=== PATIENT | male | born 1960 | race Caucasian/White ===

== ENCOUNTER 2022-03-02 18:14 | Emergency (ER) | payer OTHER | END 2022-03-02 21:41 | disposition left against medical advice (07) | LOC: MADERS 18:14 | DX: Z53.21 Procedure and treatment not carried out due to patient leaving prior to being seen by health care provider (principal) ==

== ENCOUNTER 2023-02-23 16:52 | Emergency (ER) | payer OTHER ==
[2023-02-23] MEDS ORDERED: Labetalol HCl 100 MG/20 ML VIAL ONE (17:36)
[2023-02-23 18:14] LABS: #Basophils 0.1 thou/uL (0.0-0.2); #Eosinphils 0.1 thou/uL (0.0-0.7); #Lymphocytes 1.5 thou/uL (1.20-3.40); #Monocytes 0.5 thou/uL (0.11-0.59); #Neutrophils 7.9 thou/uL (1.40-6.50); %Eosinophils 1.1 % (0.0-10.0); %Lymphocytes 14.7 % (21.0-51.0); %Neutrophils 78.2 % (42.0-75.0); Hematocrit 56.8 % (42.0-52.0); Hemoglobin 18.7 g/dL (14.0-18.0); Mean Corpuscular HGB CONC 32.9 g/dL (32.0-36.0); Mean Corpuscular Hemoglobin 31.1 pg (27.0-31.0); Mean Corpuscular Volume 94.3 fl (78.0-98.0); Mean Platelet Volume 7.7 fL (7.4-10.4); Platelet Count 236 10x3/uL (130-400); RBC Distribution Width 12.7 % (11.5-14.5); Red Blood Cell (RBC) Count 6.02 mill/uL (4.70-6.10); White Blood Cell (WBC) Count 10.1 10x3/uL (4.8-10.8)
[2023-02-23] MEDS ORDERED: Meclizine HCl 25 MG TAB ONE (18:18)
[2023-02-23] MEDS ORDERED: Amoxicillin/Potassium Clav 875 MG TAB ONE (18:18)
[2023-02-23 18:20] LABS: ALT (SGPT) 31 U/L (8-55); Albumin 4.2 g/dL (3.4-4.8); Alkaline Phosphatase 82 U/L (40-110); Anion Gap 17 mmol/L (10-20); BUN (Urea Nitrogen) 19 mg/dL (8.4-25.7); Bilirubin, Total 0.7 mg/dL (0.2-1.2); Calc. Creatinine Clearance 0 mL/min (70-130); Calcium 10.2 mg/dL (7.8-10.44); Carbon Dioxide 23 mmol/L (23-31); Estimated GFR 95; Globulin 3.4 g/dL (2.4-3.5); Glucose 128 mg/dL (80-115); Potassium 4.5 mmol/L (3.5-5.1); Protein, Total 7.6 g/dL (5.8-8.1)
[2023-02-23 18:23] LABS: Troponin I Less than 0.010 ng/mL (< 0.028)
[2023-02-23 18:27] LABS: Chloride 99 mmol/L (98-107); Sodium 134 mmol/L (136-145)
[2023-02-23 18:28] LABS: AST (SGOT) 27 U/L (5-34)
== END 2023-02-23 19:45 | disposition home or self-care (01) ==
LOC: MADERS 16:52
DX: H66.91 Otitis media, unspecified, right ear (principal); R03.0 Elevated blood-pressure reading, without diagnosis of hypertension; R73.9 Hyperglycemia, unspecified; E66.9 Obesity, unspecified; F17.220 Nicotine dependence, chewing tobacco, uncomplicated; R20.2 Paresthesia of skin
CPT/HCPCS: 70450; 80053; 84443; 84484; 85025; 93005; 96374